=== PATIENT | male | born 1995 | race Caucasian/White ===

== ENCOUNTER 2018-07-12 13:15 | Emergency (ER) | payer BC, OTHER ==
[~2018-07-12] VITALS: Ht 180.3 cm; Wt 76.5 kg
[~2018-07-12 13:15] MED LIST: PANT40GR PO
[2018-07-12] MEDS ORDERED: ONDANSETRON ODT 4 MG ONE (13:58)
[2018-07-12 14:35] LABS: BASOPHILS # (AUTO) 0.05 x10^3/uL (0-0.1); BASOPHILS % (AUTO) 1 % (0-1); EOSINOPHILS % (AUTO) 0 % (1-7); LYMPHOCYTES # (AUTO) 1.27 x10^3/uL (1-3.4); LYMPHOCYTES % (AUTO) 12 % (22-44); MD NO; MEAN CORPUSCULAR HEMOGLOBIN 28.5 pg (27.5-34.5); MEAN CORPUSCULAR HGB CONC 33.3 g/dL (33.2-36.2); MEAN CORPUSCULAR VOLUME 85.7 fL (81-97); MEAN PLATELET VOLUME 8.5 fL (7.4-10.4); MONOCYTES # (AUTO) 0.75 x10^3/uL (0.2-0.8); MONOCYTES % (AUTO) 7 % (2-9); NEUTROPHILS # (AUTO) 8.36 x10^3/uL (1.8-6.8); NEUTROPHILS % (AUTO) 80 % (42-75); PLATELET COUNT 240 x10^3/uL (130-400); RED BLOOD COUNT 5.53 x10^6/uL (4.38-5.82); RED CELL DISTRIBUTION WIDTH 12.9 % (9.4-14.8)
[2018-07-12 14:54] LABS: ALBUMIN 4.2 g/dL (3.4-5.0); ANION GAP 9 mmol/L (5-15); CALCIUM 9.2 mg/dL (8.5-10.1); CHLORIDE 104 mmol/L (98-107)
[2018-07-12 14:55] LABS: SALICYLATE LEVEL < 1.7 mg/dL (2.8-20.0)
[2018-07-12 15:00] LABS: ALANINE AMINOTRANSFERASE 30 U/L (12-78); ALKALINE PHOSPHATASE 106 U/L (45-117); BILIRUBIN,TOTAL 0.4 mg/dL (0.2-1.0); CREATININE 1.23 mg/dL (0.7-1.3); TOTAL PROTEIN 7.7 g/dL (6.4-8.2)
[2018-07-12 15:04] LABS: ACETAMINOPHEN < 2 mcg/mL (10-30)
[2018-07-12] MEDS ORDERED: CLON2TAB PO (15:31)
[2018-07-12] MEDS ORDERED: TRAZ150T62 PO (15:31)
[2018-07-12 15:51] LABS: AMPHETAMINE SCREEN, URINE Negative (Negative); BARBITURATE SCREEN, URINE Negative (Negative); BENZODIAZEPINE SCREEN, URINE Positive (Negative); CANNABINOID SCREEN, URINE Positive (Negative); COCAINE SCREEN, URINE Negative (Negative); METHADONE SCREEN, URINE Negative (Negative); OPIATE SCREEN, URINE Negative (Negative)
[2018-07-12] MEDS ORDERED: BUPR150T73 PO (16:03)
[2018-07-12 19:15] VITALS: BP 108/72
== END 2018-07-12 19:56 | disposition home or self-care (01) ==
LOC: ED 17:49
DX: F44.89 Other dissociative and conversion disorders (principal); F32.9 Major depressive disorder, single episode, unspecified
CPT/HCPCS: 36415; 80053; 80307; 80329; 82140; 85025; 93005; 99285; G0480